=== PATIENT | female | born 1975 | race Caucasian/White ===

== ENCOUNTER 2017-11-24 06:12 | Day surgery (SDC) | payer OTHER ==
[~2017-11-24 06:12] MED LIST: CEFAZOLIN 2 GM/50 ML (PMX) 50 ML IVPB
[2017-11-24] MEDS ORDERED: EPHEDrine SULFATE 50 MG/5 ML SYG (07:00)
[2017-11-24] MEDS ORDERED: PROPOFOL 20 ML (07:28)
[2017-11-24] MEDS ORDERED: ROPIVACAINE 0.2% 20 ML VIAL (07:28)
[2017-11-24] MEDS ORDERED: ROCURONIUM 50 MG INJ ×2 (07:28→09:24)
[2017-11-24] MEDS ORDERED: MIDAZOLAM 1 MG/ML 2 ML INJ (07:28)
[2017-11-24] MEDS ORDERED: FENTAnyl 50 MCG/ML VIAL (07:28)
[2017-11-24] MEDS ORDERED: METHYLENE BLUE 1% 10 ML INJ (08:56)
[2017-11-24] MEDS: METHYLENE BLUE 10 MG/ML VIAL IV (09:01)
[2017-11-24] MEDS: BUPIVACAINE 0.5%/EPI (SDV) 30 ML INJ (09:18)
[2017-11-24] MEDS ORDERED: METOCLOPRAMIDE 10 MG INJ (09:22)
[2017-11-24] MEDS ORDERED: KETOROLAC 30 MG INJ (09:22)
[2017-11-24] MEDS ORDERED: ONDANSETRON 4 MG INJ (09:22)
[2017-11-24] MEDS ORDERED: DEXAMETHASONE 4 MG/ML 1 ML INJ (09:22)
[2017-11-24] MEDS ORDERED: CEFAZOLIN 1 GM INJ (09:24)
[2017-11-24] MEDS ORDERED: SUGAMMADEX SODIUM 200 MG/2 ML VIAL IV (09:34)
[2017-11-24] MEDS ORDERED: METOCLOPRAMIDE 10 MG INJ IV (10:00)
[2017-11-24] MEDS ORDERED: FENTAnyl 50 MCG/ML VIAL IV ×3 (10:00)
[2017-11-24] MEDS ORDERED: EPHEDrine SULFATE 50 MG/5 ML SYG IV (10:00)
[2017-11-24] MEDS ORDERED: MEPERIDINE 25 MG INJ IV (10:00)
[2017-11-24] MEDS ORDERED: DIPHENHYDRAMINE 50 MG INJ IV (10:00)
[2017-11-24] MEDS ORDERED: HYDROmorphONE (0.2 MG/ML) 10ML SYG IV ×2 (10:00)
[2017-11-24] MEDS: ONDANSETRON 4 MG INJ IV (10:25)
[2017-11-24] MEDS: HYDROmorphONE (0.2 MG/ML) 10ML SYG IV ×2 (10:25→10:32)
[2017-11-24] MEDS: OXYCODONE/ACETAMINOPHEN (5/325) TAB PO (11:59)
== END 2017-11-24 13:05 | disposition home or self-care (01) ==
LOC: SDS 06:12
DX: N83.202 Unspecified ovarian cyst, left side (principal); N83.8 Other noninflammatory disorders of ovary, fallopian tube and broad ligament; N85.00 Endometrial hyperplasia, unspecified
CPT/HCPCS: 58558; 88302; 88305; 93005